=== PATIENT | male | born 1995 | race Caucasian/White ===

== ENCOUNTER 2019-01-15 13:27 | Emergency (ER) | payer BC ==
[~2019-01-15] VITALS: Ht 162.6 cm; Wt 56.2 kg
[2019-01-15 13:42] VITALS: Ht 162.6 cm; Wt 56.2 kg
[2019-01-15] MEDS ORDERED: IBUP-1542 PO (15:40)
[2019-01-15] MEDS ORDERED: ACET-141 PO (15:40)
[2019-01-15] MEDS ORDERED: METH750T93 PO (15:40)
--- NOTE | 2019-01-15 15:44 | ERD ---
ER Documentation Chief Complaint Chief Complaint c/o right calf swelling x2 days, denies injury HPI 21-year-old male presents for right calf pain and swelling times 2 days. He states that he was playing soccer, was running and felt the pain while playing. He states that currently has about 5 out of 10 pain. He states that the pain is a burning sensation. He is able to move his extremities well. He does not have any prior injuries to his right leg. Otherwise no significant past medical history. ROS All systems reviewed and are negative except as per history of present illness. Medications Home Meds Active Scripts Methocarbamol* (Robaxin*) 750 Mg Tablet, 750 MG PO TID PRN for MUSCLE SPASMS, #30 TAB Prov:ALICIA CHANG 01/15/19 Ibuprofen* (Motrin*) 600 Mg Tab, 600 MG PO Q6H PRN for PAIN AND OR ELEVATED TEMP, #30 TAB Prov:ALICIA CHANG 01/15/19 Acetaminophen* (Acetaminophen*) 500 MG Extra Strength Tablet, 500 MG PO Q4H PRN for PAIN AND OR ELEVATED TEMP, #30 TAB Prov:ALICIA CHANG 01/15/19 Allergies Allergies: Coded Allergies: No Known Allergy (Unverified , 01/15/19) PMhx/Soc Medical and Surgical Hx: pt denies Medical Hx, pt denies Surgical Hx Hx Alcohol Use: Yes (WEEKENDS) Hx Substance Use: No Hx Tobacco Use: No Smoking Status: Never smoker Physical Exam Vitals Vital Signs Date Temp Pulse Resp B/P (MAP) Pulse Ox O2 O2 Flow FiO2 Time Delivery Rate 01/15/19 97.9 51 18 109/59 98 13:42 (76) Physical Exam Const: No acute distress Resp: Clear to auscultation bilaterally Cardio: Regular rate and rhythm, no murmurs, bilateral dorsalis pedis pulses intact Abd: Soft, non tender, non distended. Normal bowel sounds Skin: No petechiae or rashes Back: No midline or flank tenderness Ext: Right calf swelling and tenderness to palpation, range of motion of the right ankle is normal, there is decreased range of motion over the right knee due to pain. Right Achilles tendon normal Neur: Awake and alert, bilateral lower extremity sensation intact Psych: Normal Mood and Affect Procedures/MDM Medical Decision Making: Differential diagnosis includes but not limited to fracture, dislocation, muscle strain, ligamentous sprain. Patient appeared well on physical exam. There was tenderness over the right calf Patient was neurovascularly intact Physical examination consistent with a right calf muscle strain Prescription(s): Patient given prescription for supportive medication(s). Patient advised to follow up with PCP in 1-2 days. Patient advised to return to ED for new or worsening symptoms. Patient stable on discharge from the ED. Disclaimer: Inadvertent spelling and grammatical errors are likely due to EHR/dictation software use and do not reflect on the overall quality of patient care. Also, please note that the electronic time recorded on this note does not necessarily reflect the actual time of the patient encounter. Departure Diagnosis: Primary Impression: Pain of right leg Condition: Fair Patient Instructions: Possible Causes of Low Back or Leg Pain Referrals: [facility] YOU HAVE RECEIVED A MEDICAL SCREENING EXAM AND THE RESULTS INDICATE THAT YOU DO NOT HAVE A CONDITION THAT REQUIRES URGENT TREATMENT IN THE EMERGENCY DEPARTMENT. FURTHER EVALUATION AND TREATMENT OF YOUR CONDITION CAN WAIT UNTIL YOU ARE SEEN IN YOUR DOCTORS OFFICE WITHIN THE NEXT 1-2 DAYS. IT IS YOUR RESPONSIBILITY TO MAKE AN APPOINTMENT FOR FOLOW-UP CARE. IF YOU HAVE A PRIMARY DOCTOR --you should call your primary doctor and schedule an appointment IF YOU DO NOT HAVE A PRIMARY DOCTOR YOU CAN CALL OUR PHYSICIAN REFERRAL HOTLINE AT IF YOU CAN NOT AFFORD TO SEE A PHYSICIAN YOU CAN CHOSE FROM THE FOLLOWING [facility] [address] [facility] [facility] [address] [facility] [facility] [address] [facility] [facility] [address] [facility] [address] [facility]. [facility]. [address] Additional Instructions: Call your primary care doctor TOMORROW for an appointment during the next 1-2 days.See the doctor sooner or return here if your condition worsens before your appointment time. ALICIA CHANG DO Jan 15, 2019 15:44
[2019-01-15 16:07] VITALS: BP 108/57; PULSE 48; RESP 16
== END 2019-01-15 16:05 | disposition home or self-care (01) ==
LOC: FTE 13:27
DX: M79.604 Pain in right leg (principal)
CPT/HCPCS: 99282